=== PATIENT | female | born 1985 | race Caucasian/White ===

== ENCOUNTER 2019-08-31 22:25 | Emergency (ER) | payer OTHER, BC ==
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
[2019-09-01] MEDS ORDERED: IBUPROFEN 600 MG TABLET PO ONE (01:01)
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
[2019-09-01 02:05] VITALS: BP 121/71
== END 2019-09-01 02:05 | disposition home or self-care (01) ==
LOC: ER 22:25
DX: S40.011A Contusion of right shoulder, initial encounter (principal); S30.1XXA Contusion of abdominal wall, initial encounter; V89.0XXA Person injured in unspecified motor-vehicle accident, nontraffic, initial encounter
CPT/HCPCS: 99283